=== PATIENT | female | born 1965 | race Native Hawaiian/Other Pacific Islander ===

== ENCOUNTER 2020-01-30 13:35 | Emergency (ER) | payer BC, OTHER | END 2020-01-30 15:08 | disposition home or self-care (01) | LOC: ED 13:35 | DX: M70.32 Other bursitis of elbow, left elbow (principal); G89.4 Chronic pain syndrome | CPT/HCPCS: 93005; 96372; 99283 ==

== ENCOUNTER 2020-03-07 14:14 | Emergency (ER) | payer BC, OTHER ==
[~2020-03-07] VITALS: Ht 149.9 cm; Wt 79.8 kg
[2020-03-07 14:46] VITALS: TEMP 98.5
[2020-03-07 16:06] VITALS: BP 130/74
== END 2020-03-07 16:07 | disposition home or self-care (01) ==
LOC: ED 14:14
DX: M77.52 Other enthesopathy of left foot and ankle (principal); M72.2 Plantar fascial fibromatosis
CPT/HCPCS: 96372; 99283; J1885

== ENCOUNTER 2020-03-13 23:13 | Emergency (ER) | payer BC, OTHER ==
[~2020-03-13] VITALS: Ht 149.9 cm; Wt 79.8 kg
[2020-03-14 01:55] VITALS: BP 138/96; TEMP 98.5
== END 2020-03-14 01:54 | disposition home or self-care (01) ==
LOC: ED 23:13
PROC: 2W3DX1Z Immobilization of Left Lower Arm using Splint (ICD-10-PCS; principal; 2020-03-13)
DX: S40.022A Contusion of left upper arm, initial encounter (principal); S60.222A Contusion of left hand, initial encounter; W18.39XA Other fall on same level, initial encounter; Y92.512 Supermarket, store or market as the place of occurrence of the external cause
CPT/HCPCS: 96372; 99283; J1885

== ENCOUNTER 2020-05-12 21:13 | Observation (INO) | payer BC, OTHER ==
[2020-05-12] VITALS (7 sets, daily range): BP systolic 87–107; BP diastolic 55–76; TEMP 98.1
[~2020-05-12] VITALS: Ht 149.9 cm; Wt 77.8 kg
[2020-05-12 21:50] LABS: PLATELET COUNT 372 K/uL (152-353)
[2020-05-12 22:30] LABS: POTASSIUM 4.1 mmol/L (3.6-5.2); SODIUM 140 mmol/L (136-145)
[2020-05-13] VITALS (14 sets, daily range): BP systolic 92–120; BP diastolic 52–72; TEMP 98–98.8; Ht 149.9 cm; Wt 77.8 kg
[2020-05-13] MEDS ORDERED: OMEPRAZOLE DR20 MG PO (16:30)
[2020-05-13] MEDS ORDERED: METF500T PO (16:32)
[2020-05-13] MEDS ORDERED: NEURONTIN 100M100 MG PO (16:33)
[2020-05-13] MEDS ORDERED: CITALOPRAM20 M1 PO (16:35)
[2020-05-13] MEDS ORDERED: CRESTOR20 MG PO (16:36)
[2020-05-13] MEDS ORDERED: AMITRIPTYLINE H50 MG PO (16:36)
[2020-05-13] MEDS ORDERED: LISITAB PO (16:38)
[2020-05-13] MEDS ORDERED: LINZESS72 MCG PO (16:40)
[2020-05-13] MEDS ORDERED: TRAZ50TA36 PO (16:43)
[2020-05-13] MEDS ORDERED: DITROPAN XL10 MG PO (16:45)
== END 2020-05-13 20:10 | disposition home or self-care (01) ==
LOC: ED 21:13 → MED/SURG 05-13 01:30
PROVIDERS: Emergency Medicine Emergency Medical Services; ADMIT Internal Medicine Endocrinology, Diabetes & Metabolism; ATTEND Internal Medicine Endocrinology, Diabetes & Metabolism
DX: R07.89 Other chest pain (principal); E11.9 Type 2 diabetes mellitus without complications; I10 Essential (primary) hypertension; E66.8 Other obesity; Z68.34 Body mass index [BMI] 34.0-34.9, adult; R06.02 Shortness of breath
CPT/HCPCS: 36415; 80053; 82550; 83735; 83880; 84484; 85027; 85379; 85610; 85730; 93005; 96360; 96361; 96375; 99220; 99284; G0378; J2270; J2405

== ENCOUNTER 2021-02-06 21:20 | Emergency (ER) | payer OTHER ==
[~2021-02-06] VITALS: Ht 149.9 cm; Wt 95.3 kg
[~2021-02-06 21:20] MED LIST: AMITRIPTYLINE H50 MG PO; CITALOPRAM20 M1 PO; CRESTOR20 MG PO; DITROPAN XL10 MG PO; LINZESS72 MCG PO; LISITAB PO; METF500T PO; NEURONTIN 100M100 MG PO; OMEPRAZOLE DR20 MG PO; TRAZ50TA36 PO
[2021-02-07 00:06] VITALS: BP 132/72; TEMP 98.5
== END 2021-02-07 00:06 | disposition home or self-care (01) ==
LOC: ED 21:20
DX: S20.211A Contusion of right front wall of thorax, initial encounter (principal); Z87.81 Personal history of (healed) traumatic fracture; R10.811 Right upper quadrant abdominal tenderness; W18.09XA Striking against other object with subsequent fall, initial encounter; Y92.098 Other place in other non-institutional residence as the place of occurrence of the external cause
CPT/HCPCS: 96372; 99283; J1885

== ENCOUNTER 2021-02-10 15:50 | Emergency (ER) | payer OTHER ==
[~2021-02-10] VITALS: Ht 149.9 cm; Wt 95.3 kg
[2021-02-10 16:06] VITALS: BP 133/81; TEMP 97.7
== END 2021-02-10 17:17 | disposition home or self-care (01) ==
LOC: ED 15:50
DX: M79.18 Myalgia, other site (principal); Z87.828 Personal history of other (healed) physical injury and trauma
CPT/HCPCS: 96372; 99282; J1885

== ENCOUNTER 2021-05-30 13:21 | Emergency (ER) | payer OTHER ==
[~2021-05-30] VITALS: Ht 149.9 cm; Wt 73.0 kg
[2021-05-30 13:30] VITALS: BP 118/81; TEMP 98.5
== END 2021-05-30 15:16 | disposition home or self-care (01) ==
LOC: ED 13:21
DX: M19.071 Primary osteoarthritis, right ankle and foot (principal)
CPT/HCPCS: 96372; 99282; J1885

== ENCOUNTER 2021-07-17 12:29 | Emergency (ER) | payer OTHER ==
[~2021-07-17] VITALS: Ht 149.9 cm; Wt 72.1 kg
[2021-07-17 12:40] VITALS: TEMP 98.9
[2021-07-17 13:59] VITALS: BP 102/55
== END 2021-07-17 14:02 | disposition home or self-care (01) ==
LOC: ED 12:29
DX: G89.4 Chronic pain syndrome (principal); F12.90 Cannabis use, unspecified, uncomplicated
CPT/HCPCS: 80307; 96372; 99283; J1885; J2360

== ENCOUNTER 2022-07-10 20:53 | Emergency (ER) | payer OTHER ==
[~2022-07-10] VITALS: Ht 147.3 cm; Wt 77.1 kg
[2022-07-10 20:53] VITALS: BP 130/90; TEMP 98
== END 2022-07-10 22:05 | disposition home or self-care (01) ==
LOC: ED 20:53
DX: S93.491A Sprain of other ligament of right ankle, initial encounter (principal); W18.39XA Other fall on same level, initial encounter; Y92.098 Other place in other non-institutional residence as the place of occurrence of the external cause
CPT/HCPCS: 96372; 99283; J1885

== ENCOUNTER 2022-10-23 15:24 | Emergency (ER) | payer OTHER ==
[~2022-10-23] VITALS: Ht 147.3 cm; Wt 68.0 kg
[2022-10-23 15:30] VITALS: TEMP 98.8
[2022-10-23 17:30] VITALS: BP 91/71
== END 2022-10-23 18:17 | disposition home or self-care (01) ==
LOC: ED 15:24
DX: S00.81XA Abrasion of other part of head, initial encounter (principal); M19.90 Unspecified osteoarthritis, unspecified site; M81.0 Age-related osteoporosis without current pathological fracture; S93.401A Sprain of unspecified ligament of right ankle, initial encounter; S20.213A Contusion of bilateral front wall of thorax, initial encounter; W01.0XXA Fall on same level from slipping, tripping and stumbling without subsequent striking against object, initial encounter
CPT/HCPCS: 96372; 99283; J1885